=== PATIENT | female | born 2000 | race Caucasian/White ===

== ENCOUNTER 2019-01-20 10:34 | Emergency (ER) | payer BC ==
[2019-01-20 11:02] VITALS: BP 132/63
--- NOTE | 2019-01-20 11:14 | UC ---
Throat Pain/Nasal Brian HPI - HPI Summary HPI Summary: 18 yo with 5 day history or nasal disharge and right sinus pressure. Hx of environmental allergies; last year had 3 months of sinus symptoms requit=ring tx with antibiotic. Uses daily antihistamine. No fever, feels fatigued. Developed cough and eye discharge today. Swims competitively, in the water 2 hours per day. - History of Current Complaint Chief Complaint: UCRespiratory Stated Complaint: SINUS CONGESTION RIGHT EYE COUGH Time Seen by Provider: 01/20/19 11:04 Hx Obtained From: Patient Hx Last Menstrual Period: 12/25/18 Onset/Duration: Gradual Onset, Lasting Days - 5 Severity: Moderate Pain Intensity: 0 Cough: Nonproductive Associated Signs & Symptoms: Positive: Sinus Discomfort, Nasal Discharge Related History: Seasonal Allergies - Epiglottits Risk Factors Epiglottis Risk Factors: Negative - Allergies/Home Medications Allergies/Adverse Reactions: Allergies Allergy/AdvReac Type Severity Reaction Status Date / Time amoxicillin Allergy Rash Verified 01/20/19 10:58 azithromycin Allergy Rash Verified 01/20/19 10:58 Home Medications: Home Medications Cetirizine* [ZyrTEC 10 MG TAB*] 10 mg PO BEDTIME 01/20/19 [History Confirmed ] PMH/Surg Hx/FS Hx/Imm Hx Previously Healthy: Yes - Surgical History Surgical History: None - Family History Known Family History: Positive: Non-Contributory - Social History Occupation: Student Lives: Dormitory/Roommates Alcohol Use: Weekly Substance Use Type: None Smoking Status (MU): Never Smoked Tobacco Review of Systems All Other Systems Reviewed And Are Negative: Yes Constitutional: Positive: Fatigue Skin: Positive: Negative Eyes: Positive: Blurred Vision, Eye Redness ENT: Positive: Sore Throat, Nasal Discharge, Sinus Congestion Respiratory: Positive: Cough. Negative: Shortness Of Breath Cardiovascular: Negative: Palpitations, Chest Pain Gastrointestinal: Positive: Negative Genitourinary: Positive: Negative Motor: Positive: Negative Neurovascular: Positive: Negative Musculoskeletal: Positive: Negative Neurological: Negative: Headache Psychological: Positive: Negative Is Patient Immunocompromised?: No Physical Exam Triage Information Reviewed: Yes Appearance: No Pain Distress, Well-Nourished, Ill-Appearing - looks fatigued Vital Signs: Initial Vital Signs Temp 98.3 F 01/20/19 10:56 Pulse 66 01/20/19 10:56 Resp 16 01/20/19 10:56 BP 132/63 01/20/19 10:56 Pulse Ox 99 01/20/19 10:56 Eye Exam: Other - JOSSIE, no photophobia Eyes: Positive: Conjunctiva Inflamed - on right, with scant discharge. ENT: Positive: Pharyngeal erythema, TMs normal, Sinus tenderness - right maxillary. Negative: Tonsillar swelling, Tonsillar exudate Neck: Positive: Supple, Nontender, No Lymphadenopathy Respiratory: Positive: Lungs clear, Normal breath sounds Cardiovascular: Positive: RRR, No Murmur Throat Pain/Nasal Course/Dx - Course Course Of Treatment: drops to treat conjunctivitis, antibiotics for sinusitis. - Differential Dx/Diagnosis Differential Diagnosis/HQI/PQRI: Sinusitis, Tonsillitis, Other - conjunctivitis Provider Diagnosis: Conjunctivitis Discharge ED - Sign-Out/Discharge Documenting (check all that apply): Patient Departure All imaging exams completed and their final reports reviewed: No Studies - Discharge Plan Condition: Good Disposition: HOME Prescriptions: DOXYcycline CAP(*) [DOXYcycline 100MG CAP(*)] 100 mg PO BID #20 cap Polymyx/Trimethoprim OPTH* [Polytrim OPHTH*] 2 drop BOTH EYES Q3H #1 btl Patient Education Materials: Sinusitis (ED), Conjunctivitis (ED) Referrals: Jos eLuis Velasquez MD [Primary Care Provider] - Additional Instructions: Treat both eyes with drops, and you will not be able to wear contact lenses during that time. Ensure that you change solutions and your lenses. Take the full course of doxycycline. This can be taken with food, but not within 2 hours of dairy products. Anticipate that it will take 3 or 4 days for sinus symptoms to improve. use ibuprofen as needed for pain of sinuses, using 600mg up to 4 times per day. - Billing Disposition and Condition Condition: GOOD Disposition: Home
== END 2019-01-20 11:33 | disposition home or self-care (01) ==
LOC: UCCORT 10:34
DX: H10.9 Unspecified conjunctivitis (principal); J32.9 Chronic sinusitis, unspecified; R09.81 Nasal congestion; R09.89 Other specified symptoms and signs involving the circulatory and respiratory systems; J02.9 Acute pharyngitis, unspecified; Z88.0 Allergy status to penicillin; Z88.1 Allergy status to other antibiotic agents
CPT/HCPCS: 99202; G0463